=== PATIENT | male | born 1980 | race Caucasian/White ===

== ENCOUNTER 2020-10-27 16:20 | Outpatient (CLI) | payer BC, SELFPAY ==
--- NOTE | ~2020-10-27 | XR_ITS ---
EXAMINATION: XR shoulder RT min 2V DATE: 10/27/2020 16:44 INDICATION: Proximal right shoulder pain TECHNIQUE: AP internally and externally rotated, AP oblique externally rotated and axillary views of the right shoulder were obtained. COMPARISON: None FINDINGS: Normal alignment. No fracture. Glenohumeral joint is normal. Minimal acromioclavicular osteoarthriti s. Soft tissues are unremarkable. Visualized portions of the right lung are clear. IMPRESSION: Minimal acromioclavicular osteoarthritis. Reviewed, dictated and finalized at location A. E PICKER
== END 2020-10-27 16:21 | disposition home or self-care (01) ==
LOC: ANHIMG 16:23
PROVIDERS: PCP Family Medicine; Visit Provider Family Medicine
DX: M19.011 Primary osteoarthritis, right shoulder (principal)
CPT/HCPCS: 73030

== ENCOUNTER 2021-06-13 16:14 | Outpatient (CLI) | payer BC, SELFPAY ==
--- NOTE | ~2021-06-13 | XR_ITS ---
EXAMINATION: XR hip LT min 2V DATE: 06/13/2021 16:40 INDICATION: Left hip pain. TECHNIQUE: 3 views of left hip were obtained. COMPARISON: None. FINDINGS: Bone alignment is normal. No fracture. Left hip joint space is normal. IMPRESSION: 1. Normal left hip. Reviewed, dictated and finalized at location A. IMPRESSION: 1. Normal left hip.
== END 2021-06-13 16:15 | disposition home or self-care (01) ==
LOC: ANHIMG 16:19
PROVIDERS: PCP Family Medicine; Visit Provider Physician Assistant
DX: M25.552 Pain in left hip (principal)
CPT/HCPCS: 73502

== ENCOUNTER 2021-06-28 16:05 | Outpatient (CLI) | payer BC, SELFPAY ==
--- NOTE | ~2021-06-28 | XR_ITS ---
XR pelvis w obliques DATE: 06/28/2021 16:39 INDICATION: Left hip pain TECHNIQUE: AP and bilateral oblique views of the pelvis COMPARISON: 06/13/2021 left hip FINDINGS: No pelvic fracture or bone destruction. Normal alignment at the pubic symphysis and sacroil iac joints. No fracture, dislocation, avascular necrosis or bone destruction of either hip. Hip joint spaces are symmetric and relatively preserved. IMPRESSION: No significant abnormality Reviewed, dictated and finalized at location A. IMPRESSION: No significant abnormality
--- NOTE | ~2021-06-28 | XR_ITS ---
XR abdomen/kub 1V DATE: 06/28/2021 16:39 INDICATION: Left lower quadrant abdominal pain for 2 months TECHNIQUE: AP projection, 2 views COMPARISON: None FINDINGS: The psoas shadows are intact. No visceromegaly is evident. There is no evidence of bowel obstruction. Included skeletal structures are unremarkable. IMPRESSION: No significant abnormality Reviewed, dictated and finalized at Location [facility]. Reviewed, dictated and finalized at location A. IMPRESSION: No significant abnormality
== END 2021-06-28 16:06 | disposition home or self-care (01) ==
LOC: ANHIMG 16:10
PROVIDERS: PCP Family Medicine; Visit Provider Family Medicine
DX: M89.8X8 Other specified disorders of bone, other site (principal); R10.9 Unspecified abdominal pain
CPT/HCPCS: 72190; 74018

== ENCOUNTER 2023-09-16 15:09 | Outpatient (CLI) | payer BC, SELFPAY ==
--- NOTE | ~2023-09-16 | US_ITS ---
EXAMINATION: US soft tissue UE LT DATE: 09/16/2023 15:25 INDICATION: Other specified tissue disorders with lump at the left thumb. TECHNIQUE: Multiple grayscale and Doppler ultrasound images of the region of concern at the were obta ined. COMPARISON: None FINDINGS: 1.7 x 1.4 x 0.8 cm very hypoechoic lesion subcutaneous tissues at the palmar aspect of the left first distal phalanx. No evident internal vascular flow on color Doppler. There appears be posterior acous tic enhancement which would favor a complex cystic lesion over solid mass. IMPRESSION: 1. Nonspecific 1.7 x 1.4 x 0.8 cm hypoechoic lesion at the palmar aspect of the left first distal pha lanx and favor complex cystic lesion over solid mass. Differential for cystic lesions would include e pidermoid inclusion cyst, ganglion cyst, abscess or hematoma. Differential for solid lesions would in clude missed tumor, particularly painful, giant cell tumor of the tendon sheath, rheumatoid nodule or gouty tophus and other nonspecific neoplasm significantly more likely to be benign and malignant mas s malignant lesions in the digits are rare. Reviewed, dictated and finalized at location A. E VISITOR IMPRESSION: 1. Nonspecific 1.7 x 1.4 x 0.8 cm hypoechoic lesion at the palmar aspect of the left first distal phalanx and favor complex cystic lesion over solid mass. Dif ferential for cystic lesions would include epidermoid inclusion cyst, ganglion cyst, abscess or hematoma. Differential for solid lesions would include missed tumor, particularly painful, giant cell tumor of the tendon sheath, rheumatoid nodule or gouty tophus and other nonspecific neoplasm significantly more likely to be benign and malignant mass malignant lesions in the digits are rare.
== END 2023-09-16 15:10 ==
PROVIDERS: PCP Family Medicine; Visit Provider Family Medicine
DX: R22.32 Localized swelling, mass and lump, left upper limb (principal); M79.89 Other specified soft tissue disorders
CPT/HCPCS: 76882

== ENCOUNTER 2025-03-25 00:58 | Day surgery (SDC) | payer BC, SELFPAY ==
[2025-03-15 14:57] VITALS: BMI 28.8
[2025-03-25 12:16] VITALS: BP 110/81; PULSE 77; RESP 18; TEMP 36.6; O2SAT 99
[2025-03-25] MEDS: LACTATED RINGERS 1,000 ML 150 ML IV CONT (12:23)
--- NOTE | 2025-03-25 12:29 | P.PNAN_ITS ---
Anes - Initial Pre Proc Eval Procedure: Operation Date: 03/25/25 13:00 Proposed Procedures p Screening Colonoscopy - Marco Torres MD Date/Time: 03/25/25 12:29 Surgeon: Marco Torres MD Pre Op Diagnosis: Encounter for screening for malignant neoplasm of Patient Data Age: 45 Gender: M Height: 1.75 m Weight: 88.8 kg Last Vital Signs Temp 36.6 C 03/25/25 12:16 Pulse 77 03/25/25 12:16 Resp 18 03/25/25 12:16 BP 110/81 03/25/25 12:16 Pulse Ox 99 03/25/25 12:16 O2 Del Method Room Air 03/25/25 12:16 Allergies Allergy/AdvReac Type Severity Reaction Status Date / Time No Known Allergies Allergy Unknown Verified 03/25/25 12:14 Home Medications ?Medication ?Instructions ?Recorded ?Confirmed ?Type No Home Medications 09/11/23 03/15/25 History Patient hx anesthesia problems: none Family hx anesthesia problems: none Results Review: All pre-operative results and documents have been reviewed as part of the pre- operative evaluation. [facility] Past Medical History Medical History Condyloma acuminatum Tobacco use disorder Right-sided Bowman's palsy Lesion of scrotum Hyperhidrosis Acute non-recurrent maxillary sinusitis Constipation Constipation by outlet dysfunction Abdominal pain Iliac crest bone pain Tobacco use Left hip pain Hx of reduction of orbital fracture Bowman's palsy Condyloma acuminatum Acromioclavicular arthrosis Family History Family History Mother Patient's mother is in good health Father Patient's father is in good health Sibling Patient's sister is in good health Social History Social History Social History: Single Smoking packs per day: 1 Smoking cigarettes per day: 20.0 Years smoked: 20 Smoking pack-years: 20.00 Smoking status: Current every day smoker Tobacco type: cigarettes Second hand tobacco smoke exposure: No Smoking end date: 07/27/20 Alcohol intake: current Alcohol use details: Occasionally Substance use: never Substance use type: marijuana Last use: weekends Lack of Transportation: No Lack of Food: Never True Current Housing: I Have Housing Concerned About Future Housing: No Difficulty Paying Gas/Electric Bills: No Difficulty Paying for Meds: No Currently Unemployed: No Education: High School Diploma/GED Difficulty w/ Childcare or Family Care: No Living arrangements: with family Occupation/Education: occupation Additional occupation/education comments: Cost Consultant Gender identity (if verbalized by the patient): Male Sexual Orientation (if Verbalized by the Patient): Straight or Heterosexual Spiritual care concerns: No Anes - Eval Final PreProcedure Day of Procedure 03/25/25 12:29 Patient weight: overweight Heart: regular rate and rhythm Lungs: decreased breath sounds Airway: Mallampati scale class II Neurological: alert and oriented Last oral intake: >/= 8 hours ASA classification: II Emergent: no Anesthetic plan: proceed Anesthesia type and monitoring: general GIVS and standard monitoring Results Review: All pre-operative results and documents have been reviewed as part of the pre- operative evaluation. Informed Consent: The patient's anesthetic plan and its attendant risks and benefits were discussed with the patient/family/POA. Questions were solicited and answers provided to the satisfaction of the patient/family/POA.
--- NOTE | 2025-03-25 13:01 | PM.IMHP ---
H&P: HPI History of Present Illness Date/Time: 03/25/25 13:01 Chief Complaint: Screening colonoscopy Narrative: This is the patient's first colonoscopy. There are no GI symptoms and there is no family history of colorectal cancer. Review of Systems Review of Systems: All systems reviewed & are unremarkable except as noted in HPI and below PMFSH Past Medical History Medical History Condyloma acuminatum Tobacco use disorder Right-sided Bowman's palsy Lesion of scrotum Hyperhidrosis Acute non-recurrent maxillary sinusitis Constipation Constipation by outlet dysfunction Abdominal pain Iliac crest bone pain Tobacco use Left hip pain Hx of reduction of orbital fracture Bowman's palsy Condyloma acuminatum Acromioclavicular arthrosis Family History Family History Mother Patient's mother is in good health Father Patient's father is in good health Sibling Patient's sister is in good health Social History Social History Social History: Single Smoking packs per day: 1 Smoking cigarettes per day: 20.0 Years smoked: 20 Smoking pack-years: 20.00 Smoking status: Current every day smoker Tobacco type: cigarettes Second hand tobacco smoke exposure: No Smoking end date: 07/27/20 Alcohol intake: current Alcohol use details: Occasionally Substance use: never Substance use type: marijuana Last use: weekends Lack of Transportation: No Lack of Food: Never True Current Housing: I Have Housing Concerned About Future Housing: No Difficulty Paying Gas/Electric Bills: No Difficulty Paying for Meds: No Currently Unemployed: No Education: High School Diploma/GED Difficulty w/ Childcare or Family Care: No Living arrangements: with family Occupation/Education: occupation Additional occupation/education comments: [employer] Gender identity (if verbalized by the patient): Male Sexual Orientation (if Verbalized by the Patient): Straight or Heterosexual Spiritual care concerns: No Meds Home Medications and Allergies Home Medications ?Medication ?Instructions ?Recorded ?Confirmed ?Type No Home Medications 09/11/23 03/15/25 History Allergies Allergy/AdvReac Type Severity Reaction Status Date / Time No Known Allergies Allergy Unknown Verified 03/25/25 12:14 Vital Signs Vital Signs - 24 hr 03/25/25 12:16 Temperature 98 F Pulse Rate 77 Respiratory Rate 18 Blood Pressure 110/81 Pulse Oximetry 99 Oxygen Delivery Room Air Exam Const: General: cooperative and healthy appearing Resp: Effort & Inspection: normal respiratory effort and able to speak in complete sentences Auscultation: clear to auscultation bilaterally Cardio: Rate: regular rate Rhythm: regular rhythm GI: Inspection: normal to inspection GI Palp: No No hepatosplenomegaly present Auscultation: normal bowel sounds Rectal Exam: deferred Skin: General skin exam: normal color Psych: Appearance: grossly normal Mental Status: mental status grossly normal Assessment and Plan Assessment and plan (1) Encounter for screening colonoscopy: Code(s): Z12.11 - Encounter for screening for malignant neoplasm of colon Status: Acute Assessment and Plan: The patient is deemed a good candidate for the procedure. Consent signed. Will proceed.
[2025-03-25 13:15] VITALS: BP 139/97; PULSE 84; RESP 21; O2SAT 96
[2025-03-25 13:25] VITALS: BP 100/69; PULSE 71; RESP 16; O2SAT 98
[2025-03-25 13:35] VITALS: BP 107/73; PULSE 67; RESP 19; O2SAT 98
== END 2025-03-25 13:42 | disposition home or self-care (01) ==
PROVIDERS: PCP Family Medicine; Referring Provider Student in an Organized Health Care Education/Training Program; Visit Provider Internal Medicine Gastroenterology
PROC: 0DJD8ZZ Inspection of Lower Intestinal Tract, Via Natural or Artificial Opening Endoscopic (ICD-10-PCS; CPT 45378; principal; 2025-03-25 13:00)
DX: Z12.11 Encounter for screening for malignant neoplasm of colon (principal); F17.210 Nicotine dependence, cigarettes, uncomplicated; F12.90 Cannabis use, unspecified, uncomplicated
CPT/HCPCS: 45378; J2003; J2704; J7120